=== PATIENT | male | born 1935 | race Caucasian/White ===

== ENCOUNTER → 2023-10-20 13:43 | Outpatient (REF) | payer MEDICARE, SELFPAY ==
--- NOTE | 2023-10-20 14:10 | CA_ITS ---
Transthoracic Echocardiogram Patient (Last, First, Middle): Dg Lynn, Gender: Male Date of : 1935 Age: 88 Procedure Date: 10/20/2023 Procedure Type: Transthoracic Echocardiogram Location: OP Height: 165.1 cm Weight: 75.75 kg BSA: 1.83 m2 Heart Rate: 54 bpm BP: 120 / 70 mmHg Dependency Counselor: PAMELA Referring MD: Vero Stephens NP Accounting Lecturer: Juwan Vail MD Symptoms: bradycardia, irreg.heart rhythm. Study Quality: Adequate ECG Rhythm: Sinus w/occasional PVCs Conclusions: - 1. Normal LV systolic function with LVEF of 60-65% it impaired relaxation filling pattern and elevated filling pressures 2. Mildly dilated left atrium 3. Mild aortic stenosis 4. Mildly dilated ascending aorta 3.9 cm 5. No gross pericardial effusion Findings Left Ventricle Normal left ventricular size, thickness, and systolic function. The visually estimated ejection fraction is between 60-65%. Spectral Doppler is indicative of an impaired relaxation filling pattern. Elevated left ventricular end diastolic pressure. Peak GLS is -20.6%, within normal limits. Right Ventricle Normal right ventricular cavity size and systolic function. Atria The left atrium is mildly dilated. There is no evidence of interatrial shunt. The right atrium is likely dilated. Aortic Valve There is mild calcification of the aortic valve. There is mild aortic valve stenosis. The peak aortic velocity is 2.01 m/s with a calculated peak gradient of 16 mmHg. The mean gradient is 8 mmHg. The aortic valve area is 1.69 cm2. There is no aortic valve regurgitation. Mitral Valve There is mild anterior and posterior mitral leaflet thickening. There is mild mitral annular calcification. There is trace mitral valve regurgitation. There is no mitral valve stenosis. Pulmonic Valve The pulmonic valve is likely normal. Tricuspid Valve Likely normal tricuspid valve structure and function. Tricuspid regurgitation envelope is inadequate for calculation of right ventricular systolic pressure. Normal right atrial pressure. Great Vessels The pulmonary artery was not well visualized. There is mild dilatation of the ascending aorta measuring 3.90 cm. Small plaque is seen in the sino tubular ridge. Venous The inferior vena cava was not well visualized. Pericardium/Pleural There is no evidence of pericardial effusion. Prior Study Comparison No prior study available for comparison. Measurements 2D Linear Measurements IVSd: 1.12 0.6-0.9/0.6-1.0 cm LVIDd: 5.43 3.9-5.3/4.2-5.9 cm LVIDd Index: 2.97 2.4-3.2/2.2-3.1 cm/m2 LVIDs: 3.09 2.0-3.6 cm LVPWd: 1.21 0.7-1.1 cm LA Diam: 3.70 2.7-3.8/3.0-4.0 cm LAIDs Index: 2.02 1.5-2.3 cm/m2 LV Mass: 319.47 67-162/88-224 g LV Mass Index: 174.58 43-95/49-115 g/m2 LVOT Diam: 2.10 3.0+(-)1.3 cm 2D Systolic Function EF 4C: 55.50 >55% EF 2C: 66.90 >55% EF BiP: 61.10 >55% Mitral Valve MV Pk E: 0.83 MV PK A: 0.93 MV Decel Time: 213.00 E/A: 0.90 E'Lateral: 7.51 E'Medial: 4.46 E/E' Med: 18.60 E/E' Lat: 11.10 PHT: 63.00 MVA PHT: 3.49 Decel Wallace: 3.89 Aortic Valve AoV Pk Russell: 2.01 AoV Mn Russell: 1.34 AoV VTI: 0.49 AoV Pk Grad: 16.00 Aov Mn Grad: 8.00 JOSÉ MIGUEL Cont.VTI: 1.69 LVOT LVOT Pk Russell: 1.10 LVOT Mn Russell: 0.69 LVOT VTI: 0.24 LVOT Pk Grad: 5.00 LVOT Mn Grad: 2.00 LVOT Diam: 2.10 LVOT Area: 3.46 Diastolic Function MV Pk E: 0.83 MV Pk A: 0.93 E/A: 0.90 E'Medial: 4.46 E/E' Med: 18.60 E' Laterial: 7.51 E/E' Lat: 11.10 Right Ventricle TAPSE (mm): 23.00 TVS' Russell: 15.00 Tricuspid Valve TR Pk Russell: 2.42 TR Pk Grad: 23.00 Great Vessels Aorta Sinus of Valsalva: 3.80 2.0-3.5 cm Ao Asc: 3.90 2.1-3.4 cm Pulmonary Valve PV Pk Russell: 0.88 Peak PV Grad: 3.00 Updated in Other Vendor System with Status of Final Juwan Vail MD electronically signed on 10/21/2023 4:36:24 PM with status of Final
== END ==
LOC: HO.CARD 13:43
PROVIDERS: Visit Provider Nurse Practitioner Family
DX: R00.1 Bradycardia, unspecified (principal)
CPT/HCPCS: 93306; 93356

== ENCOUNTER → 2023-10-20 14:10 | Outpatient (BNV) | payer MEDICARE, SELFPAY | PROVIDERS: Visit Provider Internal Medicine Cardiovascular Disease | DX: I35.0 Nonrheumatic aortic (valve) stenosis (principal); I34.81 Nonrheumatic mitral (valve) annulus calcification | CPT/HCPCS: 93306; 93356 ==

== ENCOUNTER 2025-05-11 13:30 | Outpatient (AMB) | payer MEDICARE, SELFPAY ==
--- NOTE | 2025-05-11 13:33 | A.OFFVIS_ITS ---
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 He is a patient of Dr. Schwartz. He is seen for the following urologic conditions - phimosis On exam has phimosis with difficulty withdrawing penis Redundant skin Recommend office based dorsal slit Not on blood thinner Review of Systems Const Denies chills and Denies fever(s) Card Reports no additional complaints and Denies syncope Resp Denies cough GI Denies abdominal pain and Denies heartburn Reports as per HPI and Denies change in libido Neuro Denies syncope Psych Denies change in libido Endo Denies change in libido Physical Exam Const General: cooperative, healthy appearing, comfortable and no acute distress Orientation/consciousness: patient oriented x3 HEENT Face and sinus: Yes normal facial exam Mouth: moist mucous membranes Neck Neck: Yes normal visual inspection, Yes full ROM and Yes trachea midline Chest Chest palpation & inspection: normal inspection of the chest Resp Effort & Inspection: normal respiratory effort, able to speak in complete sentences and no respiratory distress GI Inspection: Yes normal to inspection Back/Spine/Pelvis Cervical Spine: normal cervical lordosis Thoracic/Lumbar Spine: thoracic and lumbar spine normal to inspection Skin General skin exam: no rashes or lesions noted Neuro General: patient oriented x3, gait normal, tone normal and moves all extremities Extrem General: Yes normal to inspection and Yes capillary refill normal Assessment & Plan Assessment & Plan (1) Phimosis: Code(s): N47.1 - Phimosis Category: Medical Plan Risks, benefits and alternatives to therapy were discussed. These include but are not limited to infection, bleeding, damage to local organs and tissues, need for further interventions. Anesthetic risks regarding cardiac arrhythmia, blood clots, and potential mortality were discussed. The patient understands the typical recovery time and the outpatient nature of the procedure. After consideration of these risks the patient gives full informed consent and they wish to move ahead with the procedure. - office, dorsal slit Patient Instructions: This note is constructed using voice recognition software. While every effort has been made to ensure accuracy header operator errors may have been included. Imaging studies, laboratory and physical exam results were discussed and reviewed in detail. No major barriers to patient understanding were identified. An opportunity to ask questions regarding the treatment plan was provided. All questions were answered. The patient expressed understanding and agreement with the above treatment plan. The patient is aware they should contact our office by phone for worsening of their current condition or the appearance of new urologic symptoms. Compliance is encouraged with any medications and followup testing that is ordered. It is a privilege to participate in the urologic care of your patient. If you have any questions or concerns regarding treatment for the above conditions, or other urologic issues, please do not hesitate to contact me. The office telephone contact is [phone]. Sincerely, Dr Bacilio Noonan MD, [facility] - Urology Compassionate Specialist Care for the Genitourinary System Coding Level of Care Code New Pt Level 4 (64763) Diagnoses Phimosis N47.1
== END 2025-05-11 14:08 | disposition home or self-care (01) ==
LOC: HO.HUSH 13:31
PROVIDERS: Visit Provider Urology
DX: N47.1 Phimosis (principal)
CPT/HCPCS: 99204

== ENCOUNTER → 2025-05-11 13:30 | Outpatient (BNVA) | payer MEDICARE, SELFPAY | PROVIDERS: Visit Provider Urology | DX: N47.1 Phimosis (principal) | CPT/HCPCS: 99202 ==

== ENCOUNTER 2025-06-22 11:08 | Outpatient (AMB) | payer MEDICARE, SELFPAY ==
--- NOTE | 2025-06-22 11:08 | MHC.OFFVIS ---
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 He is a patient of Dr. Schwartz. He is seen for the following urologic conditions - phimosis Here for office based dorsal slit Phimosis On exam has phimosis with difficulty withdrawing penis Redundant skin Recommend office based dorsal slit Not on blood thinner Office Procedures Procedure Thyroid Biopsy Procedural Documentation: PreOperative Diagnosis: Phimosis Post Operative Diagnosis: Phimosis Procedure: Dorsal slit in office Surgeon: Dr Bacilio Noonan Anesthesia: Local Indications for procedure: Persistent phimosis with difficulty drawing back foreskin Procedure: Informed consent was verified and site confirmed The foreskin was prepped using Betadine swab stick 1% lidocaine was infiltrated into the prep use of the penis and placed on the dorsal component at the penile base for block A clamp was used at the 12 o'clock position to crush tissue this was held for 30 seconds Tissue divided with scissor Repeat clamping and tissue division was performed The foreskin was able to be freely withdrawn Using 4-0 chromic sutures the edges of the mucosa and skin were reapposed 1st suture placed at the apex of the incision 2nd sutures placed at the distal portion of the incision Sutures were then placed in the intervening spaces to obtain adequate hemostasis Dressing placed consisting of bacitracin cream and dressing Procedure tolerated well May shower in 48 hours CPT 15748 Assessment & Plan Assessment & Plan (1) Phimosis: Code(s): N47.1 - Phimosis Category: Medical Plan Four week follow-up nurse Patient Instructions: This note is constructed using voice recognition software. While every effort has been made to ensure accuracy green marketing specialist errors may have been included. Imaging studies, laboratory and physical exam results were discussed and reviewed in detail. No major barriers to patient understanding were identified. An opportunity to ask questions regarding the treatment plan was provided. All questions were answered. The patient expressed understanding and agreement with the above treatment plan. The patient is aware they should contact our office by phone for worsening of their current condition or the appearance of new urologic symptoms. Compliance is encouraged with any medications and followup testing that is ordered. It is a privilege to participate in the urologic care of your patient. If you have any questions or concerns regarding treatment for the above conditions, or other urologic issues, please do not hesitate to contact me. The office telephone contact is [phone]. Sincerely, Dr Bacilio Noonan MD, [facility] - Urology Compassionate Specialist Care for the Genitourinary System Coding Level of Care Code Procedure Only Diagnoses Phimosis N47.1
== END 2025-06-22 12:14 | disposition home or self-care (01) ==
LOC: HO.HUSH 11:08
PROVIDERS: Visit Provider Urology
DX: N47.1 Phimosis (principal)
CPT/HCPCS: 54001

== ENCOUNTER → 2025-06-22 11:08 | Outpatient (BNVA) | payer MEDICARE, SELFPAY | PROVIDERS: Visit Provider Urology | DX: N47.1 Phimosis (principal) | CPT/HCPCS: 54001 ==

== ENCOUNTER 2025-07-20 11:32 | Outpatient (AMB) | payer MEDICARE, SELFPAY ==
--- NOTE | 2025-07-20 11:32 | MHC.OFFVIS ---
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 He is a patient of Dr. Schwartz. He is seen for the following urologic conditions - phimosis Dorsal slit follow-up Four week Well-healed Easy to retract He is very happy with results Phimosis On exam has phimosis with difficulty withdrawing penis Redundant skin Dorsal slit performed 07/04 Review of Systems Const Denies chills and Denies fever(s) Card Reports no additional complaints and Denies syncope Resp Denies cough GI Denies abdominal pain and Denies heartburn Reports as per HPI and Denies change in libido Neuro Denies syncope Psych Denies change in libido Endo Denies change in libido Physical Exam Const General: cooperative, healthy appearing, comfortable and no acute distress Orientation/consciousness: patient oriented x3 HEENT Face and sinus: Yes normal facial exam Mouth: moist mucous membranes Neck Neck: Yes normal visual inspection, Yes full ROM and Yes trachea midline Chest Chest palpation & inspection: normal inspection of the chest Resp Effort & Inspection: normal respiratory effort, able to speak in complete sentences and no respiratory distress GI Inspection: Yes normal to inspection Back/Spine/Pelvis Cervical Spine: normal cervical lordosis Thoracic/Lumbar Spine: thoracic and lumbar spine normal to inspection Skin General skin exam: no rashes or lesions noted Neuro General: patient oriented x3, gait normal, tone normal and moves all extremities Extrem General: Yes normal to inspection and Yes capillary refill normal Assessment & Plan Assessment & Plan (1) Phimosis: Code(s): N47.1 - Phimosis Category: Medical Plan P.r.n. follow-up Patient Instructions: This note is constructed using voice recognition software. While every effort has been made to ensure accuracy print color matcher errors may have been included. Imaging studies, laboratory and physical exam results were discussed and reviewed in detail. No major barriers to patient understanding were identified. An opportunity to ask questions regarding the treatment plan was provided. All questions were answered. The patient expressed understanding and agreement with the above treatment plan. The patient is aware they should contact our office by phone for worsening of their current condition or the appearance of new urologic symptoms. Compliance is encouraged with any medications and followup testing that is ordered. It is a privilege to participate in the urologic care of your patient. If you have any questions or concerns regarding treatment for the above conditions, or other urologic issues, please do not hesitate to contact me. The office telephone contact is [phone]. Sincerely, Dr Bacilio Noonan MD, [facility] - Urology Compassionate Specialist Care for the Genitourinary System Coding Level of Care Code Est Pt Level 3 (97600) Global (20185) Diagnoses Phimosis N47.1
== END 2025-07-20 11:49 | disposition home or self-care (01) ==
LOC: HO.HUSH 11:32
PROVIDERS: Visit Provider Urology
DX: N47.1 Phimosis (principal)
CPT/HCPCS: 99024; 99213

== ENCOUNTER → 2025-07-20 11:32 | Outpatient (BNVA) | payer MEDICARE, SELFPAY | PROVIDERS: Visit Provider Urology | DX: N47.1 Phimosis (principal) | CPT/HCPCS: 99212 ==